=== PATIENT | female | born 1975 | race Two or more races ===

== ENCOUNTER 2019-08-22 18:25 | Emergency (ER) | payer MEDICAID ==
[~2019-08-22] VITALS: Ht 152.4 cm; Wt 62.6 kg
[2019-08-22] MEDS ORDERED: Ketorolac 30mg Inj IV ONE (18:45)
[2019-08-22 19:00] VITALS: BP 142/82
--- NOTE | 2019-08-22 19:00 | NUR ---
ED Nurse Note: Pt walked into ED from home for c/o abdominal pain and nausea onset four days ago. Pt is aaox4, no cardiac or respiratory distress noted. Pt is ambulatory with steady gait. IV line established and blood drawn by RN. Urine specimen sent to lab. Will continue to monitor.
[2019-08-22 19:40] LABS: BASOPHILS % (AUTO) 0.6 % (0.0-2.0); HEMATOCRIT 41.2 % (37.0-47.0); HEMOGLOBIN 14.4 G/DL (12.0-16.0); LYMPHOCYTES % (AUTO) 39.4 % (20.0-45.0); MEAN CORPUSCULAR VOLUME 85 FL (80-99); MONOCYTES % (AUTO) 8.5 % (1.0-10.0); NEUTROPHILS % (AUTO) 49.5 % (45.0-75.0); PLATELET COUNT 260 K/UL (150-450); RED BLOOD COUNT 4.83 M/UL (4.20-5.40); RED CELL DISTRIBUTION WIDTH 11.2 % (11.6-14.8); WHITE BLOOD COUNT 4.5 K/UL (4.8-10.8)
[2019-08-22 20:08] LABS: APPEARANCE,URINE CLEAR; BILIRUBIN, URINE NEGATIVE (NEGATIVE); COLOR,URINE PALE YELLOW; GLUCOSE, URINE (UA) NEGATIVE (NEGATIVE); KETONES,URINE 2+ (NEGATIVE); LEUKOCYTE ESTERASE ,URINE NEGATIVE (NEGATIVE); NITRITE,URINE NEGATIVE (NEGATIVE); PH,URINE 7 (4.5-8.0); PROTEIN,URINE NEGATIVE (NEGATIVE); UROBILINOGEN,URINE NORMAL MG/DL (0.0-1.0)
[2019-08-22 20:16] LABS: ANION GAP 8 mmol/L (5-15); BLOOD UREA NITROGEN 9 mg/dL (7-18); CARBON DIOXIDE 27 MMOL/L (21-32); CHLORIDE 106 MMOL/L (98-107); CREATININE 0.6 MG/DL (0.55-1.30); POTASSIUM 4.1 MMOL/L (3.5-5.1); SODIUM 141 MMOL/L (136-145)
[2019-08-22 20:20] LABS: ALANINE AMINOTRANSFERASE 51 U/L (12-78); ALBUMIN 3.8 G/DL (3.4-5.0); ALBUMIN/GLOBULIN RATIO 0.9 (1.0-2.7); ALKALINE PHOSPHATASE 91 U/L (46-116); ASPARTATE AMINO TRANSFERASE 26 U/L (15-37); BILIRUBIN,TOTAL 0.4 MG/DL (0.2-1.0)
--- NOTE | 2019-08-22 20:23 | Emergency Room Report ---
History of Present Illness General Chief Complaint: Abdominal Pain Source: Patient Present Illness HPI 43-year-old female with no significant past medical history here complaining of 4 days of left upper quadrant abdominal pain, and 2 days of diffuse abdominal cramping as well as flatulence. Complains of body aches. Complains of nausea and vomiting however denies diarrhea and constipation. Denies bloody emesis. Complains of acid reflux. Denies any recent travel. Reports that she usually does not eat spicy and acidic food however cooks a lot of food with spices. Denies any surgical history. Denies chest pain, shortness of breath, palpitation, headache and dizziness. Denies any history of cardiac disease. Denies tobacco smoke, marijuana use, alcohol intake. Reports that she still gets her menses and she has been having bleeding for the past few months with increased cramping during her menstrual period. Patient has not been seen by primary care doctor. Allergies: Coded Allergies: No Known Allergies (Unverified , 08/22/19) Patient History Past Medical History: see triage record Past Surgical History: unable to obtain Pertinent Family History: none Now: No Immunizations: UTD Reviewed Nursing Documentation: PMH: Agreed; PSxH: Agreed Nursing Documentation-PMH Past Medical History: No Stated History Review of Systems All Other Systems: negative except mentioned in HPI Physical Exam Vital Signs Date Time Temp Pulse Resp B/P (MAP) Pulse Ox O2 Delivery O2 Flow Rate FiO2 08/22/19 18:32 98.2 58 18 142/82 (102) 99 Room Air Sp02 EP Interpretation: reviewed, normal General Appearance: no apparent distress, alert, GCS 15, non-toxic Head: normocephalic, atraumatic Eyes: bilateral eye normal inspection, bilateral eye PERRL ENT: hearing grossly normal, normal pharynx, no angioedema, normal voice Neck: full range of motion, supple, supple/symm/no masses Respiratory: chest non-tender, lungs clear, normal breath sounds, no rhonchi, no respiratory distress, no retraction, no wheezing, speaking full sentences Cardiovascular #1: regular rate, rhythm, no edema, no murmur, normal capillary refill Cardiovascular #2: 2+ carotid (R), 2+ carotid (L), 2+ radial (R), 2+ radial (L) Gastrointestinal: non tender, soft, no mass, no organomegaly, no peritonitis, no bruit, non-distended, no guarding, no hernia, no pulsatile mass, no rebound Rectal: deferred Genitourinary: normal inspection, no CVA tenderness Musculoskeletal: back normal, normal range of motion, no calf tenderness, gait/ station normal, non-tender Neurologic: alert, motor strength/tone normal, oriented x3, sensory intact, responsive, speech normal Psychiatric: judgement/insight normal, memory normal, mood/affect normal, no suicidal/homicidal ideation Skin: no rash Lymphatic: no adenopathy Medical Decision Making PA Attestation All diagnoses and treatment plans were reviewed and discussed with my supervising physician Dr. Darby Diagnostic Impression: Primary Impression: Gastritis Additional Impression: Acute gastroenteritis ER Course 43-year-old female with no significant past medical history here complaining of 4 days of left upper quadrant abdominal pain, and 2 days of diffuse abdominal cramping as well as flatulence. Complains of body aches. Complains of nausea and vomiting however denies diarrhea and constipation. Denies bloody emesis. Complains of acid reflux. Denies any recent travel. Reports that she usually does not eat spicy and acidic food however cooks a lot of food with spices. Denies any surgical history. Denies chest pain, shortness of breath, palpitation, headache and dizziness. Denies any history of cardiac disease. Denies tobacco smoke, marijuana use, alcohol intake. Reports that she still gets her menses and she has been having bleeding for the past few months with increased cramping during her menstrual period. Patient has not been seen by primary care doctor. Ddx considered but are not limited to: appendicitis, cholecystis, gastritis, gastroenteritis, UTI, pyelonephritis, SBO, gastritis, HI Vital signs: are WNL, pt. is afebrile H&PE are most consistent with: gastritis, gastroenteritis ORDERS: CBC, CMP, UA, lipase, urine test, EKG, troponin ED INTERVENTIONS: NS bolus, Pepcid, Zofran, Toradol DISCHARGE: At this time pt. is stable for d/c to home. Will provide printed patient care instructions, and any necessary prescriptions. Care plan and follow up instructions have been discussed with the patient prior to discharge. 2. Patient to follow-up primary care provider. Patient keeps insisting on getting ultrasound abdominal CT scan to have a correct diagnosis of gastritis to explained to her that diagnosis of gastritis is clinical in the emergency department and since she has normal labs she needs to follow-up with primary care for referral to gastroenterology is chronic and not acute. At this time I had no indication for scanning abdomen as patient is nontender to palpation no guarding and has normal vital signs as well as white blood count is within normal limits. Patient also elicits pain in left upper quadrant which is secondary to gastritis EKG Diagnostic Results Rate: bradycardiac Rhythm: NSR ST Segments: no acute changes Other Impression No acute ST changes Last Vital Signs Date Time Temp Pulse Resp B/P (MAP) Pulse Ox O2 Delivery O2 Flow Rate FiO2 08/22/19 18:32 98.2 58 18 142/82 (102) 99 Room Air Disposition: HOME, SELF-CARE Condition: Stable Scripts Acetaminophen* (TYLENOL EXTRA STRENGTH*) 500 Mg Tablet 500 MG ORAL Q8H PRN for Prn Headache/Temp > 101, #30 TAB 0 Refills Prov: Robbie Beasley 08/22/19 Omeprazole (OMEPRAZOLE) 20 Mg Tablet.dr 20 MG ORAL DAILY, #20 TAB Prov: Robbie Beasley 08/22/19 Ondansetron (Zofran) 4 Mg Tablet 4 MG ORAL Q6H PRN for Nausea & Vomiting, #10 TAB Prov: Robbie Beasley 08/22/19 Referrals: NOT CHOSEN IPA/,REFERRING (PCP) Patient Instructions: Abdominal Pain, Adult, Gastritis, Adult Additional Instructions: Take medication as directed, avoid spicy and acidic foods, increase oral hydration, keep a brat diet, if worsening symptoms return to emergency room. You need to follow-up with primary care for further evaluation and referral to local area network administrator. Robbie Beasley Aug 22, 2019 20:23
[2019-08-22] MEDS ORDERED: OMEPRAZOLE20 M3 ORAL (20:26)
[2019-08-22] MEDS ORDERED: ZOFRAN4 M1 ORAL (20:26)
[2019-08-22] MEDS ORDERED: TYLENOL EXTRA500 MG ORAL (20:26)
[2019-08-22 20:40] VITALS: BP 138/90
--- NOTE | 2019-08-22 20:40 | NUR ---
ER DISCHARGE NOTE: Patient is cleared to be discharged per ERMD, pt is aox4, on room air, with stable vital signs. pt was given dc and prescription instructions, pt was able to verbalize understanding, pt id band and iv site removed without complications. pt is able to ambulate with steady gait. pt took all belongings.
== END 2019-08-22 20:40 | disposition home or self-care (01) ==
LOC: EMR 19:06
DX: K29.70 Gastritis, unspecified, without bleeding (principal); K52.9 Noninfective gastroenteritis and colitis, unspecified
CPT/HCPCS: 36415; 80053; 81003; 81025; 83690; 84484; 85025; 93005; 96361; 96374; 96375; J1885; J2405; J7030; S0028; Z7502; 99284